=== PATIENT | male | born 1970 | race Caucasian/White ===

== ENCOUNTER 2018-12-25 19:51 | Emergency (ER) | payer OTHER ==
[~2018-12-25] VITALS: Ht 180.3 cm; Wt 81.6 kg
[2018-12-25 20:00] VITALS: BP 131/84
[2018-12-25] MEDS ORDERED: DIPHTH,PERTUSS(ACELL),TET TOX 0.5 ML DISP.SYRIN. VAX IM ONE ×2 (20:40→20:45)
[2018-12-25] MEDS ORDERED: MELO7.5T29 PO (21:10)
--- NOTE | 2018-12-25 21:10 | PHYS DOC ---
Past History Past Medical History: No Pertinent History Past Surgical History: No Surgical History Smoking: Non-smoker Alcohol Use: Rarely Drug Use: None Adult General Chief Complaint Chief Complaint: HAND PROBLEM HPI HPI Patient is a 38-year-old male presents with left hand pain and cuts. 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 This propeller has a diameter of 18 inches and has a maximum RPM of 5000. This injury happened shortly prior to arrival. Patient is uncertain as to his tetanus status. Patient is right-hand dominant. No pulsatile bleeding. No numbness or tingling. Increased pain with movement. Pain is moderate in intensity.[] Review of Systems Review of Systems Constitutional: Denies fever or chills [] Eyes: Denies change in visual acuity, redness, or eye pain [] HENT: Denies nasal congestion or sore throat [] Respiratory: Denies cough or shortness of breath [] Cardiovascular: No chest pain or palpitations[] GI: Denies abdominal pain, nausea, vomiting, bloody stools or diarrhea [] : Denies dysuria or hematuria [] Musculoskeletal:, See history of present illness[] Integument: Denies rash or skin lesions, see history of present illness [] Neurologic: Denies headache, focal weakness or sensory changes [] Endocrine: Denies polyuria or polydipsia [] All other systems were reviewed and found to be within normal limits, except as documented in this note. Current Medications Current Medications Current Medications Medications (Trade) Dose Ordered Sig/Parul Start Time Stop Time Status Last Admin Dose Admin Diphtheria/ Tetanus/Acell Pertussis (Boostrix) 0.5 ml STK-MED ONCE 12/25/18 20:40 12/25/18 20:41 DC Allergies Allergies Allergies Coded Allergies Type Severity Reaction Last Updated Verified No Known Drug Allergies 12/25/18 No Physical Exam Physical Exam Constitutional: Well developed, well nourished, no acute distress, non-toxic appearance. [] HENT: Normocephalic, atraumatic, bilateral external ears normal, oropharynx moist, no oral exudates, nose normal. [] Eyes: PERRLA, EOMI, conjunctiva normal, no discharge. [] Neck: Normal range of motion, no tenderness, supple, no stridor. [] Cardiovascular:Heart rate regular rhythm, no murmur [] Lungs & Thorax: Bilateral breath sounds clear to auscultation [] Abdomen: Not examined. [] Skin: Warm, dry, no erythema, no rash. [] Back: No tenderness, no CVA tenderness. [] Extremities: Patient's left hand has small lacerations to his thumb index and long finger on the palmar aspect. FDS, FDP, and extensor mechanisms are intact. 2 point discrimination is less than 5 mm. Capillary refill is less than 2 seconds. No foreign body identified in any of the wounds. The other 3 extremities show: No tenderness, no cyanosis, no clubbing, ROM intact, no edema. [] Neurologic: Alert and oriented X 3, normal motor function, normal sensory function, no focal deficits noted. [] Psychologic: Affect normal, judgement normal, mood normal. [] Current Patient Data Vital Signs Vital Signs Date Time Temp Pulse Resp B/P (MAP) Pulse Ox O2 Delivery O2 Flow Rate FiO2 12/25/18 20:00 98.8 60 16 97 Room Air EKG EKG [] Radiology/Procedures Radiology/Procedures X-ray of the left hand shows no evidence of a fracture, dislocation, nor radiopaque foreign body.[] Course & Med Decision Making Course & Med Decision Making Pertinent Labs and Imaging studies reviewed. (See chart for details) [] Dragon Disclaimer Dragon Disclaimer This electronic medical record was generated, in whole or in part, using a voice recognition dictation system. Departure Departure: Impression: Primary Impression: Laceration of left hand Disposition: 01 HOME, SELF-CARE Condition: IMPROVED Referrals: PCP,UNKNOWN (PCP) Follow-up with your regular doctor in 2 days Patient Instructions: Sterile Tape Wound Closure Additional Instructions: Keep the wounds clean and dry. Follow-up with your regular doctor in 2 days for a wound check. Return to the ER if worsening pain, bleeding, or any other concerns. Scripts Meloxicam (MELOXICAM) 7.5 Mg Tablet 7.5 MG PO DAILY for PAIN, #20 TAB Prov: SAMUEL MUÑOZ DO 12/25/18 Laceration Repair Lac Repair Indication: Left thumb, index, and long finger lacerations[] Procedure: The patient was placed in the appropriate position and the area was then cleansed. The laceration was closed using Mastisol, Steri-Strips, and skin glue. The wound area was then dressed with sterile dressings. Total repaired wound length: 1.5 cm. Other Items: None, no foreign body identified The patient tolerated the procedure well. Hemostasis was achieved. Complications: None. Problem Qualifiers Primary Impression: Laceration of left hand Encounter type: initial encounter Foreign body presence: without foreign body Qualified Codes: S61.412A - Laceration without foreign body of left hand, initial encounter SAMUEL MUÑOZ DO Dec 25, 2018 21:10
--- NOTE | 2018-12-26 00:12 | RAD ---
Three-view left hand radiographs 12/25/2018 CLINICAL HISTORY: Injury to the left hand earlier today. Lacerations. PA, lateral and oblique digital radiographs of the left hand were obtained. No fracture or dislocation of the left hand is seen. No radiopaque foreign body is noted. IMPRESSION: No fracture or dislocation of the left hand is seen. Electronically signed by: Francisco Villafuerte MD (12/26/2018 12:09 AM) [facility]
== END 2018-12-25 21:12 | disposition home or self-care (01) ==
LOC: ER 19:51
DX: S61.012A Laceration without foreign body of left thumb without damage to nail, initial encounter (principal); S61.211A Laceration without foreign body of left index finger without damage to nail, initial encounter; S61.213A Laceration without foreign body of left middle finger without damage to nail, initial encounter; W26.8XXA Contact with other sharp object(s), not elsewhere classified, initial encounter; Y93.89 Activity, other specified; Y92.89 Other specified places as the place of occurrence of the external cause; Y99.8 Other external cause status
CPT/HCPCS: 12001; 73130; 90471; 90715; 99284